=== PATIENT | male | born 1980 | race Caucasian/White ===

== ENCOUNTER 2022-03-27 05:25 | Emergency (ER) | payer BC ==
[~2022-03-27] VITALS: Ht 195.5 cm; Wt 145.1 kg
[2022-03-27] MEDS ORDERED: TETANUS,DIPTH,PERTUSS P/F (BOOSTRIX) 0.5 ML VIAL IM ONE (06:00)
--- NOTE | 2022-03-27 06:50 | ED Fall/Injury ---
General Chief Complaint: Trauma-Non Activation Stated Complaint: FALL,RT EYEBROW LAC Nursing Triage Note: patient states he tripped and fell over unkown object. denies LOC. patient has laceration to rt eyebrow, bleeding controled at this time. hematoma to rt calf, abrasions rt foot. abrasion left ankle and left forarm. patient states the calf is the most painful Source: patient Exam Limitations: no limitations (YANET WARNER MD) History of Present Illness Date Seen by Provider: Mar 27, 2022 Time Seen by Provider: 05:50 Initial Comments This 41-year-old gentleman presents to the emergency room with laceration over the right brow when he fell at home and struck his head on the door jam. He was woken by his child crying and his hollering at him in the night. He got up from the couch where he was sleeping startled and tripped on something in the living room. He denies loss of consciousness. He has not had any signs or symptoms of concussion. He has some other injuries including a hematoma on the right calf, abrasion on the right foot, abrasion on the left ankle, and abrasion on the left forearm. None of these injuries require imaging for further evaluation. The brow wound is gaping when tension is applied. He will require sutures. He does not know when his last tetanus immunization was. Location Injury Occurred: patients house (YANET WARNER MD) Allergies and Home Medications Allergies Coded Allergies: No Known Drug Allergies (Unverified , 03/27/22) Patient Home Medication List Home Medication List Reviewed: Yes (YANET WARNER MD) Review of Systems Review of Systems Constitutional: no symptoms reported Eyes: No Symptoms Reported Ears, Nose, Mouth, Throat: no symptoms reported Respiratory: no symptoms reported Cardiovascular: no symptoms reported Gastrointestinal: no symptoms reported Genitourinary: no symptoms reported Musculoskeletal: see HPI Skin: see HPI Psychiatric/Neurological: No Symptoms Reported (YANET WARNER MD) Past Yevjbwo-Vmmfxm-Ftskeo Hx Patient Social History Tobacco Use?: No Use of E-Cig and/or Vaping dev: No Substance use?: No Alcohol Use?: No (YANET WARNER MD) Immunizations Up To Date Influenza Vaccine Up-to-Date: No; Not Current First/Initial COVID19 Vaccinat: 2020 Second COVID19 Vaccination Dominick: 2020 (YANET WARNER MD) Past Medical History Surgery/Hospitalization HX: HTN, Diabetes Surgeries: Yes Gallbladder Respiratory: No Cardiac: Yes High Cholesterol, Hypertension Neurological: No Genitourinary: No Gastrointestinal: No Musculoskeletal: No Endocrine: Yes Diabetes, Non-Insulin dep HEENT: No Cancer: No Psychosocial: No (YANET WARNER MD) Physical Exam Vital Signs Vital Signs - First Documented 03/27/22 05:35 Temp 36.2 Pulse 97 Resp 20 B/P (MAP) 143/91 (108) Pulse Ox 94 O2 Delivery Room Air (LOKI ENCINAS MD) Vital Signs Capillary Refill : Less Than 3 Seconds (YANET WARNER MD) Height, Weight, BMI Height: '" Weight: lbs. oz. kg; 37.00 BMI Method: General Appearance: WD/WN, no apparent distress HEENT: PERRL/EOMI, other (2 cm laceration through the right brow. Bony structures intact.) Cardiovascular: regular rate, rhythm, no edema, no murmur Respiratory: lungs clear, normal breath sounds, no respiratory distress Extremities: normal inspection, no pedal edema, other (Minor abrasions. 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, no motor/sensory deficits, alert, normal mood/affect, oriented x 3 Skin: normal color, warm/dry, other (Laceration as above) (YANET WARNER MD) Procedures/Interventions Wound Location: Face Other Wound Location right eye brow Wound Length (cm): 3.5 Wound's Depth, Shape: superficial, into muscle, linear Wound Explored: clean Irrigated w/ Saline (ccs): 100 Betadine Prep?: No Anesthesia: 1% Lidocaine Volume Anesthetic (ccs): 3 Suture: Prolene Suture Size: 6-0 Number of Sutures: 8 Layer Closure?: 1 Number Deep Layer Sutures: 0 Sterile Dressing Applied?: No (LOKI ENCINAS MD) Progress/Results/Core Measures Results/Orders Medications Given in ED Current Medications Medications Dose Ordered Sig/Jaylen Route Start Time Stop Time Status Last Admin Dose Admin Diphtheria/ Tetanus/Acell Pertussis 0.5 ml ONCE ONCE IM 03/27/22 06:00 03/27/22 06:01 DC 03/27/22 06:11 0.5 ML (LOKI ENCINAS MD) Vital Signs/I&O 03/27/22 05:35 Temp 36.2 Pulse 97 Resp 20 B/P (MAP) 143/91 (108) Pulse Ox 94 O2 Delivery Room Air (LOKI ENCINAS MD) Blood Pressure Mean: 108 Progress Progress Note : Time: 06:50 Progress Note Patient is receiving a tetanus booster and Dr. Encinas is repairing the laceration. (YANET WARNER MD) Progress Note : Time: 06:59 Progress Note Patient care assumed at shift change for suture placement. 41-year-old male mechanical trip and fall at home. Multiple contusions and abrasions as described in the medical record. Patient has a laceration through subcutaneous tissue and into some superficial muscles angulated through the right eyebrow. Minimal active bleeding is noted. Wound is approximately 3-1/2 cm in length. It was copiously irrigated with saline and Betasept. Local anesthesia with 1% plain lidocaine for mL. Wound was closed with 8 superficial interrupted 6-0 Prolene sutures. Patient tolerated the procedure well. We discussed wound care precautions. He will return to the emergency room next Sunday to have the sutures removed. All questions are sought and answered. Patient is stable for discharge. (LOKI ENCINAS MD) Initial ECG Impression Date: Mar 27, 2022 (YANET WARNER MD) Departure Impression Primary Impression: Laceration of forehead Qualified Codes: S01.81XA - Laceration without foreign body of other part of head, initial encounter Additional Impressions: Fall on same level as cause of accidental injury Contusion of right calf Qualified Codes: S80.11XA - Contusion of right lower leg, initial encounter Abrasions of multiple sites Disposition: HOME, SELF-CARE Condition: Improved Departure-Patient Inst. Decision time for Depature: 07:01 (LOKI ENCINAS MD) Referrals: JULIETA PLASCENCIA MD (PCP/Family) Primary Care Physician Patient Instructions: Laceration Repair With Stitches ED Add. Discharge Instructions: Wash the wounds and abrasions gently with soap and water once or twice daily. You can apply a little triple antibiotic ointment over the sutures to the right eyebrow twice a day for 1 to 2 days. Monitor the wound for signs of infection including swelling, redness and drainage. If any of these occur please come back to the emergency room for reevaluation. Come back to the emergency room next Sunday morning for suture removal. [id number] Tylenol or ibuprofen as needed for aches and pains. Copy Copies To 1: JULIETA PLASCENCIA MD, JOSHUA T MD Mar 27, 2022 06:50 LOKI ENCINAS MD Mar 27, 2022 07:02
[2022-03-27 07:08] VITALS: BP 143/91
== END 2022-03-27 07:09 | disposition home or self-care (01) ==
LOC: EDUNIT# 05:25 → ER 05:29
DX: S01.111A Laceration without foreign body of right eyelid and periocular area, initial encounter (principal); S80.11XA Contusion of right lower leg, initial encounter; S40.811A Abrasion of right upper arm, initial encounter; S50.812A Abrasion of left forearm, initial encounter; S90.811A Abrasion, right foot, initial encounter; S90.512A Abrasion, left ankle, initial encounter; Z23 Encounter for immunization; W01.0XXA Fall on same level from slipping, tripping and stumbling without subsequent striking against object, initial encounter; W22.03XA Walked into furniture, initial encounter; Y92.008 Other place in unspecified non-institutional (private) residence as the place of occurrence of the external cause
CPT/HCPCS: 12051; 90715

== ENCOUNTER 2022-04-01 09:46 | Emergency (ER) | payer BC ==
[~2022-04-01] VITALS: Ht 193 cm; Wt 145.1 kg
[2022-04-01 10:02] VITALS: BP 136/87
== END 2022-04-01 10:02 | disposition home or self-care (01) ==
LOC: EDUNIT# 09:46 → ER 09:48
DX: S01.111D Laceration without foreign body of right eyelid and periocular area, subsequent encounter (principal); X58.XXXD Exposure to other specified factors, subsequent encounter

== ENCOUNTER 2023-02-15 08:49 | Emergency (ER) | payer BC ==
[2023-02-15] MEDS ORDERED: fentaNYL INJECTION 100 MCG/2 ML VIAL IM ONE ×2 (09:30→12:00)
--- NOTE | 2023-02-15 09:33 | ED Fall/Injury ---
General Chief Complaint: Upper Extremity Stated Complaint: DISLOCATED SHOULDER Nursing Triage Note: PT AMB TO RM 10 WITH SPOUSE WITH C/O POSS L SHOULDER DISLOCATION AFTER A FALL THIS AM. PT WAS ATTEMPTING TO PUSH A VEHICLE AND HIS FEET SLIPPED AND HE FELL Source: patient, family Exam Limitations: no limitations History of Present Illness Date Seen by Provider: Feb 15, 2023 Time Seen by Provider: 09:10 Allergies and Home Medications Allergies Coded Allergies: No Known Drug Allergies (Unverified , 03/27/22) Past Flaoucn-Zeeods-Lpoddj Hx Patient Social History Tobacco Use?: No Use of E-Cig and/or Vaping dev: No Substance use?: No Alcohol Use?: No Pt feels they are or have been: No Immunizations Up To Date First/Initial COVID19 Vaccinat: 2020 Second COVID19 Vaccination Dominick: 2020 Third COVID19 Vaccination Date: 2021 Past Medical History Surgery/Hospitalization HX: HTN, Diabetes [facility], ORTHO SURGERIES Surgeries: Yes Gallbladder Respiratory: No Cardiac: Yes High Cholesterol, Hypertension Neurological: No Genitourinary: No Gastrointestinal: No Musculoskeletal: No Endocrine: Yes Diabetes, Non-Insulin dep HEENT: No Cancer: No Psychosocial: No Physical Exam Vital Signs Vital Signs - First Documented 02/15/23 09:02 Temp 35.7 Pulse 84 Resp 20 B/P (MAP) 147/97 (114) Pulse Ox 98 O2 Delivery Room Air Capillary Refill : Height, Weight, BMI Height: '" Weight: lbs. oz. kg; 37.00 BMI Method:Actual Procedures/Interventions Suture Size: 6-0 Progress/Results/Core Measures Results/Orders My Orders Orders - YANET WARNER MD Fentanyl Injection (Fentanyl Injection (02/15/23 09:30) Shoulder, Left, 3 Views (02/15/23 09:18) Humerus, Left, 2 Views (02/15/23 09:18) Oxycodone/Apap 5/325mg Tablet (Oxycodon (02/15/23 11:45) Fentanyl Injection (Fentanyl Injection (02/15/23 12:00) Medications Given in ED Current Medications Medications Dose Ordered Sig/Jaylen Route Start Time Stop Time Status Last Admin Dose Admin Fentanyl Citrate 100 mcg ONCE ONCE IM 02/15/23 09:30 02/15/23 09:31 DC 02/15/23 09:23 100 MCG Vital Signs/I&O 8/31/23 09:02 Temp 35.7 Pulse 84 Resp 20 B/P (MAP) 147/97 (114) Pulse Ox 98 O2 Delivery Room Air Blood Pressure Mean: 114 Departure Impression Primary Impression: Comminuted fracture of left humerus Additional Impression: Fall on same level Qualified Codes: W18.30XA - Fall on same level, unspecified, initial encounter Disposition: HOME, SELF-CARE Condition: Stable Departure-Patient Inst. Decision time for Depature: 12:03 Referrals: JULIETA PLASCENCIA MD (PCP/Family) Primary Care Physician Patient Instructions: Shoulder Fracture Add. Discharge Instructions: Keep your arm in the sling as much as possible. Use Percocet as prescribed for pain control. Percocet may cause drowsiness, so do not drive, operate machinery, or make important decisions on Percocet. Percocet may also cause constipation, so you may wish to use a stool softener such as Colace while on Percocet. Icing your shoulder in 20-minute intervals may also help reduce pain and swelling. Follow-up with Dr. Delmer Kilgore tomorrow, February 16, at his clinic in [place] at 9:[address] Delmer Kilgore [address] [place], [place] [id number] All discharge instructions reviewed with patient and/or family. Voiced understanding. Scripts Oxycodone HCl/Acetaminophen (Percocet 5-325 mg Tablet) 1 Each Tablet 1-2 TAB PO Q4H for PAINMOD MDD 6 TABS, #20 TAB Prov: YANET WARNER MD 02/15/23 YANET WARNER MD Feb 15, 2023 09:33
--- NOTE | 2023-02-15 10:10 | Diagnostic Imaging Report ---
INDICATION: Fall with left shoulder injury AP, oblique and transscapular views of left shoulder reveal nondisplaced comminuted fracture involving the left humeral head and neck. Fracture involves the greater tuberosity with minimal displacement. Otherwise, the articular surface appears intact. There may be mild left shoulder hemarthrosis without dislocation. IMPRESSION: Comminuted left humeral fracture with greatest involvement at the head neck junction and greater tuberosity. Articular surfaces appear to be intact. Dictated by: Dictated on workstation # [id number]
--- NOTE | 2023-02-15 10:11 | Diagnostic Imaging Report ---
INDICATION: Left arm pain. TIME OF EXAM: 9:42 AM. FINDINGS: Two views of the left humerus demonstrate an acute fracture involving the neck of the humerus as well as fracture involving the greater tuberosity. No significant displacement or angulation is seen. The glenohumeral alignment is maintained. Alignment at the elbow is normal. IMPRESSION: Nondisplaced proximal humerus fractures, as described. Dictated by: Dictated on workstation # [id number]
[2023-02-15] MEDS ORDERED: oxyCODONE/ACETAMINOPHEN 5/325MG TABLET PO ONE (11:45)
[2023-02-15] MEDS ORDERED: OXYC1TAB87 PO (12:06)
[2023-02-15 12:25] VITALS: BP 143/87
== END 2023-02-15 12:25 | disposition home or self-care (01) ==
LOC: EDUNIT# 08:49 → ER 08:52
DX: S42.352A Displaced comminuted fracture of shaft of humerus, left arm, initial encounter for closed fracture (principal); W01.0XXA Fall on same level from slipping, tripping and stumbling without subsequent striking against object, initial encounter
CPT/HCPCS: 73030; 73060; 99283; A4565